=== PATIENT | male | born 2000 | race Caucasian/White ===

== ENCOUNTER 2018-01-16 11:14 | Emergency (ER) | payer OTHER ==
[2018-01-16] MEDS: NORCO, ANEXSIA 5/325MG TABLET (HYDROcodone/ACETAMINOPHEN) PO (13:05)
== END 2018-01-16 13:08 | disposition home or self-care (01) ==
LOC: M ED 11:14
DX: S90.32XA Contusion of left foot, initial encounter (principal); W20.8XXA Other cause of strike by thrown, projected or falling object, initial encounter; Y92.89 Other specified places as the place of occurrence of the external cause; F17.210 Nicotine dependence, cigarettes, uncomplicated
CPT/HCPCS: 73610

== ENCOUNTER 2018-09-24 21:45 | Inpatient (IN) | payer OTHER ==
[~2018-09-24] VITALS: Ht 188 cm; Wt 90.0 kg
[~2018-09-24 21:45] MED LIST: IBUP80TA PO
[2018-09-24] MEDS ORDERED: MOBI15TA PO (22:01)
[2018-09-25 00:12] LABS: HEMATOCRIT 41.1 % (42.0-52.0); HEMOGLOBIN 14.7 g/dl (13.5-17.5); MEAN CORPUSCULAR HEMOGLOBIN 32.5 pg (27.0-33.0); MEAN CORPUSCULAR HGB CONC 35.8 g/dl (32.0-36.5); MEAN CORPUSCULAR VOLUME 90.7 fl (80.0-96.0); PLATELET COUNT, AUTOMATED 187 10^3/uL (150-450); RED BLOOD COUNT 4.53 10^6/uL (4.30-6.10)
[2018-09-25 00:30] LABS: AMPHETAMINES LEVEL URINE NEGATIVE (NEGATIVE); BARBITURATES URINE NEGATIVE (NEGATIVE); BENZODIAZEPINES URINE NEGATIVE (NEGATIVE); CANNABINOIDS URINE NEGATIVE (NEGATIVE); COCAINE METABOLITE URINE NEGATIVE (NEGATIVE); METHADONE URINE NEGATIVE (NEGATIVE); OPIATES URINE NEGATIVE (NEGATIVE); PHENCYCLIDINE URINE NEGATIVE (NEGATIVE)
[2018-09-25 00:45] LABS: ACETAMINOPHEN LEVEL < 2.0 UG/ML (10.0-30.0); ALBUMIN 4.2 GM/DL (3.2-5.2); ALT/SGPT 29 U/L (12-78); BILIRUBIN,DIRECT 0.3 MG/DL (0.0-0.2); BILIRUBIN,TOTAL 3.4 MG/DL (0.2-1.0); BLOOD UREA NITROGEN 20 MG/DL (7-18); CALCIUM LEVEL 8.6 MG/DL (8.5-10.1); CARBON DIOXIDE LEVEL 31 MEQ/L (21-32); CHLORIDE LEVEL 108 MEQ/L (98-107); ETHYL ALCOHOL (ETHANOL) < 0.003 % (0.000-0.010); GLUCOSE, FASTING 82 MG/DL (70-100); POTASSIUM SERUM 4.3 MEQ/L (3.5-5.1); SALICYLATE LEVEL < 1.7 MG/DL (5.0-30.0); SODIUM LEVEL 141 MEQ/L (136-145); THYROID STIMULATING HORMONE 0.869 uIU/ML (0.463-3.98); TOTAL PROTEIN 6.8 GM/DL (6.4-8.2)
[2018-09-25] MEDS ORDERED: MELO15TA28 PO (01:18)
[2018-09-25] MEDS ORDERED: MAALOX 30 ML SUSP *UDC PO PRN (01:45)
[2018-09-25] MEDS ORDERED: ACETAMINOPHEN TAB 650MG DOSE (2X325MG) PO PRN (01:45)
[2018-09-25] MEDS ORDERED: MOM 30ML SUSPENSION UDC PO PRN (01:45)
[2018-09-25 02:12] VITALS: BP 140/70
--- NOTE | 2018-09-25 08:18 | HPEPDOC ---
[facility] Medical History & Physical Date of Admission Sep 25, 2018 History and Physical PCP: [facility] ATTENDING: Dr. Aravind Flowers HPI: 18[facility]M [facility] depressive disorder, being medically examined today. No acute medical complaints today. Denies any fevers, chills, weakness, fatigue, CURRAN, CP, SOB, cough, palpitations, abdominal pain, N/V/D or changes in bowel or bladder habits. PMHx: depression H/O SI PSHX: denies SOCHX: Resides in: [facility], from [place] Marital Status: single Kids: none Employment: Active duty Tobacco use: denies ETOH: 4-5 2 x per month Illicit Drugs: Denies IV Drug Use: Denies Tattoos done unprofessionally: x1 FAMHX: Mother: Alive, well Father: Alive, heart disease Siblings: Alive, well Children: none Unexpected deaths due to medical reasons: None. ROS: As noted in HPI, otherwise 11pt ROS of systems reviewed and unremarkable. PE: GEN: 18yoM, appears stated age. Well-nourished, well developed. No acute distress. Alert and oriented x 3. Pleasant, interactive. HEENT: Normocephalic, atraumatic. Pupils are equal, round, and reactive to light. Extraocular movements are intact. No nystagmus appreciated. Sclera are nonicteric. Conjunctiva without injection. Nose midline. Nasal turbinates without bogginess. EACs both patent BL. TMs both visualized and bryant with good cone of light, no bulging or erythema. No facial asymmetry. Moist mucous membranes. Dentition fair. Pharynx pink and moist, no cobblestoning. Neck supple, trachea midline. No lymphadenopathy or thyromegaly appreciated. CHEST: Regular rate and rhythm, +S1, +S2 LUNGS: Clear to auscultation bilaterally. No wheezes, rales, or rhonchi. Breathing appears symmetric and easy. Patient is speaking in full sentences. No accessory muscle use. ABD: Round, soft, non-tender, non-distended. +Bowel sounds throughout. No rebound or guarding. No costovertebral angle tenderness. EXT: Pulses 2+ bilaterally dorsalis pedis and radial. No lower extremity edema appreciated. SKIN: [place], dry, warm. Capillary refill <2sec. No rashes. NEURO: Alert and oriented x 3. Cranial nerves III-XII are intact. No focal d eficits appreciated. EKG: pending A&P: 18yoM [facility] for unspecified depressive disorder 1. Psych. Plan per Psychiatry. Obtain baseline EKG to assure the safety of psychiatric medications as they can prolong the QT interval. 2. Elevated bilirubin. Pt denies any abdominal pain. Recheck CMP in AM. 3.Follow up with PCP on discharge. 4. Tattoo done unprofessionally. Pt declines HIV/hepatitis screening at this time. 5. Staff member Stephon present throughout exam. Vital Signs Vital Signs Date Time Temp Pulse Resp B/P (MAP) Pulse Ox O2 Delivery O2 Flow Rate FiO2 09/25/18 02:12 97.6 69 20 140/70 (93) 09/25/18 01:56 97 Room Air Laboratory Data Labs 24H Laboratory Tests 2 09/24/18 23:51: Nucleated Red Blood Cells % (auto) 0.0, Anion Gap 2L, Calcium Level 8.6, [place] te Amino Transf (AST/SGOT) 23, Alanine Aminotransferase (ALT/SGPT) 29, Alkaline Phosphatase 89, Total Bilirubin 3.4H, Direct Bilirubin 0.3H, Total Protein 6.8, Albumin 4.2, Albumin/Globulin Ratio 1.62, Thyroid Stimulating Hormone (TSH) 0.869, Salicylates Level < 1.7L, Urine Amphetamines Screen NEGATIVE, Urine Benzodiazepines Screen NEGATIVE, Urine Opiates Screen NEGATIVE, Urine Methadone Screen NEGATIVE, Acetaminophen Level < 2.0L, Urine Barbiturates Screen NEGATIVE, Urine Phencyclidine Screen NEGATIVE, Urine Cocaine Metabolite Screen NEGATIVE, Urine Cannabinoids Screen NEGATIVE, Ethyl Alcohol Level < 0.003 CBC/BMP Laboratory Tests 09/24/18 23:51 Red Blood Count 4.53, Mean Corpuscular Volume 90.7, Mean Corpuscular Hemoglobin 32.5, Mean Corpuscular Hemoglobin Concent 35.8, Red Cell Distribution Width 12.5 Home Medications Scheduled Meloxicam (Meloxicam) 15 Mg Tab, 15 MG PO DAILY Allergies Coded Allergies: No Known Allergies (Unverified , 01/16/18) Lucero Cooper Sep 25, 2018 08:18
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
[2018-09-25 18:00] VITALS: BP 112/53
[2018-09-25] MEDS ORDERED: ARIPiprazole 2 MG TAB PO SCH (21:00)
[2018-09-25] MEDS: traZODone 50 MG TAB PO PRN (22:02)
[2018-09-26 06:49] VITALS: BP 114/55
[2018-09-26 07:52] LABS: ALBUMIN 3.9 GM/DL (3.2-5.2); ALT/SGPT 25 U/L (12-78); BILIRUBIN,TOTAL 2.3 MG/DL (0.2-1.0); BLOOD UREA NITROGEN 16 MG/DL (7-18); CALCIUM LEVEL 8.9 MG/DL (8.5-10.1); CARBON DIOXIDE LEVEL 29 MEQ/L (21-32); CHLORIDE LEVEL 108 MEQ/L (98-107); CREATININE FOR GFR 0.93 MG/DL (0.70-1.30); GLUCOSE, FASTING 94 MG/DL (70-100); POTASSIUM SERUM 4.3 MEQ/L (3.5-5.1); SODIUM LEVEL 143 MEQ/L (136-145); TOTAL PROTEIN 6.5 GM/DL (6.4-8.2)
[2018-09-26] MEDS ORDERED: SERTRALINE HCL 50 MG TAB PO SCH (09:00)
--- NOTE | 2018-09-26 17:12 | MHIPNPDOC ---
[facility] Progress Note Progress Note DATE OF SERVICE: 09/26/18 HISTORY: Chief Complaint Suicidal ideation. History of Present Illness HISTORY OF THE PRESENT ILLNESS: Patient is a 18 -year-old , male, who as per Ed record: " Pt states that he has SI with no plan "yet." Main triggers are that his mother lives in [place] & she is going through a divorce & custody reese. Also, he does not like his job. He has been in the [employer] for two years with no deployments. He is scheduled to be deployed to [place] in two months. Pt c/o depression & poor sleep. He denies HI. He has a hx of depression with three prior admissions. He has no support locally". VITAL SIGNS: See below. NEW TEST RESULTS: See below CURRENT MEDICATIONS: See below. MENTAL STATUS EXAMINATION: Patient is a 18-year old male, who is alert, cooperative but resistant at the same time, laying in bed, wearing hospital clothes. Speech: Is clear, not spontaneous, normal rate, tone and volume.. Language skills are good. Thought processes including: linear, coherent. Thought content: patient has depressive/anxious thoughts, self deprecatory thoughts. Description of abnormal or psychotic thoughts: denies thought delusions, denies HI, admits SI. Judgment: poor. Insight: poor. Orientation: x 3 . Recent and remote memory: good. Attention span and concentration: good. Language: well structured. Fund of knowledge: average. Mood: depressed/anxious. Affect: depressed/anxious DIAGNOSES: 1. Major Depressive Disorder, recurrent, severe 2. R/O Persistent Depressive Disorder ASSESSMENT: patient is severely depressed, he feels guilty because he has not be en sending money to his mothe, so that she can divorce his stepfather. he says he wanted to be deployed to a combat area because "somebody has to do it" and he says that he is not afraid of . TW believes he probably wanted to go to war to be killed, so that his mother could benefit from his life insurance. he shouldn't be under this enormous pressure of having to send her money, in a mission to rescue her. I explained there is a limit to what we can do for others and he doesn't have all the money to help her out, as a matter of fact, because he has sent her money, he is going through some financial problems athat are contributing to his depression. MANAGEMENT PLAN: Increase Zoloft to 100 mgs Po QAM Increase Abilify to 2 mgs PO BID TIME SPENT: 25 minutes. Vital Signs Vital Signs Date Time Temp Pulse Resp B/P (MAP) Pulse Ox O2 Delivery O2 Flow Rate FiO2 09/26/18 06:49 98.3 70 12 114/55 (74) 09/25/18 01:56 97 Room Air Laboratory Data 24H Labs Laboratory Tests 2 09/26/18 06:55: Anion Gap 6L, Blood Urea Nitrogen 16, Creatinine 0.93, Sodium Level 143, Potassium Level 4.3, Chloride Level 108H, Carbon Dioxide Level 29, Calcium Level 8.9, Aspartate Amino Transf (AST/SGOT) 14, Alanine Aminotransferase (ALT/SGPT) 25, Alkaline Phosphatase 80, Total Bilirubin 2.3H, Total Protein 6.5, Albumin 3.9, Albumin/Globulin Ratio 1.50 CBC/BMP Laboratory Tests 09/26/18 06:55 Calcium Level 8.9, Aspartate Amino Transf (AST/SGOT) 14, Alanine Aminotransfera se (ALT/SGPT) 25, Alkaline Phosphatase 80, Total Bilirubin 2.3 H, Total Protein 6.5, Albumin 3.9 Current Medications Current Medications Acetaminophen (Tylenol Tab) 650 mg Q6HP PRN PO HEADACHE or DISCOMFORT Last administered on 09/25/18at 09:15; Start 09/25/18 at 01:45 Al Hydrox/Mg Hydrox/Simethicone (Mylanta) 30 ml Q4HP PRN PO HEARTBURN/INDIGESTION; Start 09/25/18 at 01:45 Aripiprazole (AbiLIFY) 2 mg QHS PO Last administered on 09/25/18at 22:02; Start 09/25/18 at 21:00 Home Med (Med Rec Complete!) ASDIRECTED XX ; Start 09/25/18 at 01:30; Stop 09/06 07/26 at 01:30; Status DC Magnesium Hydroxide (Milk Of Magnesia) 30 ml DAILYPRN PRN PO CONSTIPATION; Start 09/25/18 at 01:45 Sertraline HCl (Zoloft) 50 mg QAM PO Last administered on 09/26/18at 09:26; Start 09/26/18 at 09:00 Trazodone HCl (Desyrel) 50 mg QHSP PRN PO INSOMNIA Last administered on at 22:02; Start 09/25/18 at 01:45 Allergies Coded Allergies: No Known Allergies (Unverified , 01/16/18) BEULAH MALDONADO MD Sep 26, 2018 17:12
[2018-09-26 18:12] VITALS: BP 121/58
[2018-09-26] MEDS: traZODone 50 MG TAB PO PRN (20:29)
[2018-09-26] MEDS: ARIPiprazole 2 MG TAB PO SCH (20:29)
--- NOTE | 2018-09-27 00:02 | ECGEPIP ---
Stationary ECG Study [facility] Test Date: 2018-09-25 Pat Name: SARY DE LUNA Department: Room: [place] [address] Gender: M Gang Vibrator Operator: JANAY : 2000 Requested By: Lucero Cooper Order Number: [id number] Reading MD: Handy Zarate Measurements Intervals [place] Rate: 61 P: 68 RI: 151 QRS: 79 QRSD: 110 T: 50 QT: 384 QTc: 388 Interpretive Statements SINUS RHYTHM WITH SINUS ARRHYTHMIA NO PRIOR TRACING IN THE SYSTEM Electronically Signed On 09-27-2018 0:02:20 EDT by Handy Zarate
[2018-09-27 06:36] VITALS: BP 112/53
[2018-09-27] MEDS: ARIPiprazole 2 MG TAB PO SCH ×2 (08:18→21:05)
[2018-09-27] MEDS ORDERED: SERTRALINE 100 MG TAB PO SCH (09:00)
[2018-09-27 18:00] VITALS: BP 122/59
[2018-09-27] MEDS: traZODone 50 MG TAB PO PRN (21:05)
[2018-09-28 06:28] VITALS: BP 113/77
[2018-09-28] MEDS: SERTRALINE HCL 50 MG TAB PO SCH (08:27)
[2018-09-28] MEDS: ARIPiprazole 2 MG TAB PO SCH ×2 (08:27→20:38)
--- NOTE | 2018-09-28 13:58 | MHIPN ---
DATE: 09/27/2018 CHIEF COMPLAINT: He feels tired. SUBJECTIVE: He is seen for followup, in the presence of staff. He says he feels tired. He feels it is because of the medications, they have been increased, but that his mood is better overall. He says he is not as despondent. Denies any suicidal thoughts or intents. MENTAL STATUS EXAMINATION: Neat, cooperative, coherent. No agitation. No psychomotor retardation. Affect is restricted, appears somewhat tired. Denies any suicidal thoughts or intents. No evidence of any thoughts of harming anyone else, nor of any psychosis. Cognition grossly intact. Insight and judgment remain somewhat compromised. ASSESSMENT: Major depressive disorder, recurrent. PLAN: I suggest that the sertraline be decreased back to 50 mg daily. It was increased to 100 mg, relatively quickly, and that may have resulted in the tiredness. It is possible that trazodone may have contributed to it as well. He is to be encouraged to participate in activities on the unit. We will continue the rest of the care. Further recommendations will be made depending on his condition. VITAL SIGNS: Blood pressure 112/53, pulse 63, temperature 98.6.
[2018-09-28 18:00] VITALS: BP 118/58
[2018-09-28] MEDS: traZODone 50 MG TAB PO PRN (20:38)
--- NOTE | 2018-09-29 03:21 | MHIPN ---
DATE: 09/25/2018 CHIEF COMPLAINT: Feels okay. SUBJECTIVE: Seen for followup. He says that he feels a bit better, and that he is less tired. Slept okay at night. MENTAL STATUS EXAMINATION: Neat, cooperative. No agitation. No psychomotor retardation. Does not appear as tired as he did yesterday, with a broader affect. Denies any suicidal thoughts or intents. No homicidal ideas or intents. No evidence of any psychosis. His cognition is grossly intact. Judgment and insight possibly improved. ASSESSMENT: Major depressive disorder, recurrent. PLAN: Continue current care, and the decreased dose of the Zoloft, at 50 mg daily. I would hold off on an increase just yet, as he has been on it only for the last few days. Abilify is to continue at 2 mg twice a day. He is encouraged to participate in activities on the unit. He will be seeing the treatment team tomorrow, and further recommendations will be made. VITAL SIGNS: Blood pressure 113/77, pulse 76, temperature 97.7 degrees.
[2018-09-29 06:41] VITALS: BP 112/56
[2018-09-29] MEDS: SERTRALINE HCL 50 MG TAB PO SCH (08:06)
[2018-09-29] MEDS: ARIPiprazole 2 MG TAB PO SCH ×2 (08:06→20:56)
[2018-09-29 18:00] VITALS: BP 131/69
--- NOTE | 2018-09-29 19:00 | MHIPNPDOC ---
[facility] Progress Note Progress Note DATE OF SERVICE: 09/29/18 HISTORY: Chief Complaint Suicidal ideation. History of Present Illness HISTORY OF THE PRESENT ILLNESS: Patient is a 18 -year-old , male, who as per Ed record: " Pt states that he has SI with no plan "yet." Main triggers are that his mother lives in [place] & she is going through a divorce & custody reese. Also, he does not like his job. He has been in the [employer] for two years with no deployments. He is scheduled to be deployed to [place] in two months. Pt c/o depression & poor sleep. He denies HI. He has a hx of depression with three prior admissions. He has no support locally". VITAL SIGNS: See below. NEW TEST RESULTS: See below CURRENT MEDICATIONS: See below. MENTAL STATUS EXAMINATION: Patient is a 18-year old male, who is alert, cooperative but resistant at the same time, in his bedroom, wearing personal clothes Speech: Is clear, not spontaneous, normal rate, tone and volume. Language skills are good. Thought processes including: linear, coherent. Thought content: patient has depressive/anxious thoughts, self deprecatory thoughts. Description of abnormal or psychotic thoughts: denies thought delusions, denies HI, admits having the last SI on Saturday Judgment: poor. Insight: poor. Orientation: x 3 . Recent and remote memory: good. Attention span and concentration: good. Language: well structured. Fund of knowledge: average. Mood: depressed/anxious. Affect: depressed/anxious DIAGNOSES: 1. Major Depressive Disorder, recurrent, severe 2. R/O Persistent Depressive Disorder ASSESSMENT: Patient says that he felt a little bit drowsy over the weekend and that's when Dr. Smith decreased the amount of Zoloft that I had indicated for him (Zoloft 100 mgs) and put him back on 75 mgs. This young man is saying that he feels better, he thinks it is because he had the time to reflect, he says his mother is not asking him for money for the divorce, he has been sending it voluntarily and he says that he made some poor decisions regarding his finances. I explain that I'm not discharging him tomorrow, I want to see how he reacts to 75 mgs of Zoloft and if he becomes drowsy once again, to please notify the staff. MANAGEMENT PLAN: Increase Zoloft to 75 mgs Po QAM Increase Abilify to 2 mgs PO BID TIME SPENT: 25 minutes. Vital Signs Vital Signs Date Time Temp Pulse Resp B/P (MAP) Pulse Ox O2 Delivery O2 Flow Rate FiO2 09/29/18 06:41 97.8 59 14 112/56 (74) 09/25/18 01:56 97 Room Air Current Medications Current Medications Acetaminophen (Tylenol Tab) 650 mg Q6HP PRN PO HEADACHE or DISCOMFORT Last administered on 09/25/18at 09:15; Start 09/25/18 at 01:45 Al Hydrox/Mg Hydrox/Simethicone (Mylanta) 30 ml Q4HP PRN PO HEARTBURN/INDIGESTION; Start 09/25/18 at 01:45 Aripiprazole (AbiLIFY) 2 mg BID PO Last administered on 09/29/18 08:06; Start 09/26/18 at 21:00 Aripiprazole (AbiLIFY) 2 mg QHS PO Last administered on 09/25/18at 22:02; Start 09/25/18 at 21:00; Stop 09/26/18 at 16:21; Status DC Home Med (Med Rec Complete!) ASDIRECTED XX ; Start 09/25/18 at 01:30; Stop 09/25/18 at 01:30; Status DC Magnesium Hydroxide (Milk Of Magnesia) 30 ml DAILYPRN PRN PO CONSTIPATION; Start 09/25/18 at 01:45 Sertraline HCl (Zoloft) 50 mg DAILY PO Last administered on 09/29/18at 08:06; Start 09/28/18 at 09:00; Stop 09/29/18 at 10:26; Status DC Sertraline HCl (Zoloft) 50 mg QAM PO Last administered on 09/26/18at 09:26; Start 09/26/18 at 09:00; Stop 09/26/18 at 16:21; Status DC Sertraline HCl (Zoloft) 75 mg DAILY PO ; Start 09/30/18 at 09:00 Sertraline HCl (Zoloft) 100 mg QAM PO Last administered on 09/27/18at 08:18; Start 09/27/18 at 09:00; Stop 09/27/18 at 12:34; Status DC Trazodone HCl (Desyrel) 50 mg QHSP PRN PO INSOMNIA Last administered on 09/28/18at 20:38; Start 09/25/18 at 01:45 Allergies Coded Allergies: No Known Allergies (Unverified , 01/16/18) BEULAH MALDONADO MD Sep 29, 2018 19:00
[2018-09-29] MEDS: traZODone 50 MG TAB PO PRN (20:57)
[2018-09-30 06:47] VITALS: BP 130/60
[2018-09-30] MEDS: ARIPiprazole 2 MG TAB PO SCH ×2 (08:58→20:05)
[2018-09-30] MEDS: SERTRALINE HCL 25 MG TABLET PO SCH (08:58)
--- NOTE | 2018-09-30 15:06 | MHIPNPDOC ---
[facility] Progress Note Progress Note DATE OF SERVICE: 09/30/18 HISTORY: Chief Complaint Suicidal ideation. History of Present Illness HISTORY OF THE PRESENT ILLNESS: Patient is a 18 -year-old , male, who as per Ed record: " Pt states that he has SI with no plan "yet." Main triggers are that his mother lives in [place] & she is going through a divorce & custody reese. Also, he does not like his job. He has been in the [employer] for two years with no deployments. He is scheduled to be deployed to [employer] in two months. Pt c/o depression & poor sleep. He denies HI. He has a hx of depression with three prior admissions. He has no support locally". VITAL SIGNS: See below. NEW TEST RESULTS: See below CURRENT MEDICATIONS: See below. MENTAL STATUS EXAMINATION: Patient is a 18-year old male, who is alert, cooperative but resistant at the same time, in his bedroom, wearing personal clothes Speech: Is clear, not spontaneous, normal rate, tone and volume. Language skills are good. Thought processes including: linear, coherent. Thought content: patient is goal directed, has plans for the future Description of abnormal or psychotic thoughts: denies thought delusions, denies HI, admits having the last SI on Saturday Judgment: limited Insight: limited Orientation: x 3 . Recent and remote memory: good. Attention span and concentration: good. Language: well structured. Fund of knowledge: average. Mood: depressed/anxious. Affect: depressed/anxious DIAGNOSES: 1. Major Depressive Disorder, recurrent, severe 2. R/O Persistent Depressive Disorder ASSESSMENT: Patient says that he was not able to sleep last night, he tosses and turns. TW discontinued Trazodone, started him on Remeron 30 mgs. PO QHS MANAGEMENT PLAN: Increase Zoloft to 75 mgs Po QAM Increase Abilify to 2 mgs PO BID Remeron 30 mgs PO QHS Discontinue Trazodone TIME SPENT: 25 minutes. Vital Signs Vital Signs Date Time Temp Pulse Resp B/P (MAP) Pulse Ox O2 Delivery O2 Flow Rate FiO2 09/30/18 06:47 97.2 60 14 130/60 (83) 09/25/18 01:56 97 Room Air Current Medications Current Medications Acetaminophen (Tylenol Tab) 650 mg Q6HP PRN PO HEADACHE or DISCOMFORT Last administered on 09/25/18 09:15; Start 09/25/18 at 01:45 Al Hydrox/Mg Hydrox/Simethicone (Mylanta) 30 ml Q4HP PRN PO HEARTBURN/INDIGESTION; Start 09/25/18 at 01:45 Aripiprazole (AbiLIFY) 2 mg BID PO Last administered on 09/30/18 08:58; Start 09/26/18 at 21:00 Aripiprazole (AbiLIFY) 2 mg QHS PO Last administered on 09/25/18 22:02; Start 09/25/18 at 21:00; Stop 09/26/18 at 16:21; Status DC Home Med (Med Rec Complete!) ASDIRECTED XX ; Start 09/25/18 at 01:30; Stop at 01:30; Status DC Magnesium Hydroxide (Milk Of Magnesia) 30 ml DAILYPRN PRN PO CONSTIPATION; Start 09/25/18 at 01:45 Sertraline HCl (Zoloft) 50 mg DAILY PO Last administered on 09/29/18 08:06; Start 09/28/18 at 09:00; Stop 09/29/18 at 10:26; Status DC Sertraline HCl (Zoloft) 50 mg QAM PO Last administered on 09/26/18 09:26; Start 09/26/18 at 09:00; Stop 09/26/18 at 16:21; Status DC Sertraline HCl (Zoloft) 75 mg DAILY PO Last administered on 09/30/18 08:58; Start 09/30/18 at 09:00 Sertraline HCl (Zoloft) 100 mg QAM PO Last administered on 09/27/18 08:18; Start 09/27/18 at 09:00; Stop 09/27/18 at 12:34; Status DC Trazodone HCl (Desyrel) 50 mg QHSP PRN PO INSOMNIA Last administered on 09/29/18 20:57; Start 09/25/18 at 01:45; Stop 09/30/18 at 14:51; Status DC Allergies Coded Allergies: No Known Allergies (Unverified , 01/16/18) BEULAH MALDONADO MD Sep 30, 2018 15:06
[2018-09-30 18:00] VITALS: BP 130/64
[2018-09-30] MEDS ORDERED: MIRTAZAPINE 15 MG TAB PO SCH (21:00)
[2018-10-01 06:42] VITALS: BP 132/64
[2018-10-01] MEDS: ARIPiprazole 2 MG TAB PO SCH (08:53)
[2018-10-01] MEDS: SERTRALINE HCL 25 MG TABLET PO SCH (08:53)
[2018-10-01] MEDS ORDERED: ARIP2TAB PO (11:16)
[2018-10-01] MEDS ORDERED: MIRT15TA3 PO (11:16)
[2018-10-01] MEDS ORDERED: SERT25TA PO (11:16)
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
== END 2018-10-01 14:15 | disposition home or self-care (01) | DRG 885 ==
LOC: M ED 21:45 → M ED INP 09-25 01:35 → M PSY 09-25 02:08
PROVIDERS: ADMIT Psychiatry & Neurology Psychiatry; ATTEND Psychiatry & Neurology Psychiatry
DX: F33.2 Major depressive disorder, recurrent severe without psychotic features (principal); Z62.811 Personal history of psychological abuse in childhood; Z91.5 Personal history of self-harm; Z79.1 Long term (current) use of non-steroidal anti-inflammatories (NSAID)

== ENCOUNTER → 2020-05-24 | Outpatient (CLI) | payer OTHER ==
[~2020-05-24] MED LIST changes: +ARIP1TAB4 PO; +MELO15TA28 PO; +MIRT15TA3 PO; +MOBI15TA PO; +SERT25TA85 PO
== END ==
LOC: EEVIPCON 11:33 → M LABSMTC 11:33
PROVIDERS: ATTEND Family Medicine
DX: Z20.828 Contact with and (suspected) exposure to other viral communicable diseases (principal)